=== PATIENT | female | born 1970 | race Caucasian/White ===

== ENCOUNTER 2017-11-08 16:34 | Emergency (ER) | payer BC ==
[~2017-11-08] VITALS: Ht 157.5 cm; Wt 60.0 kg
[2017-11-08] MEDS ORDERED: KEFLEX500 M1 PO (17:22)
[2017-11-08 17:45] VITALS: BP 111/65
== END 2017-11-08 17:53 | disposition home or self-care (01) | DRG 581 ==
LOC: ED 16:34
PROC: 0JQJ0ZZ Repair Right Hand Subcutaneous Tissue and Fascia, Open Approach (ICD-10-PCS; principal; 2017-11-08)
DX: S61.212A Laceration without foreign body of right middle finger without damage to nail, initial encounter (principal); W26.0XXA Contact with knife, initial encounter; Y93.G1 Activity, food preparation and clean up; Y92.000 Kitchen of unspecified non-institutional (private) residence as the place of occurrence of the external cause